=== PATIENT | male | born 1955 | race Caucasian/White ===

== ENCOUNTER 2022-12-04 07:27 | Outpatient (CLI) | payer MEDICARE, SELFPAY | END 2022-12-04 07:28 | disposition home or self-care (01) | PROVIDERS: Visit Provider Family Medicine | DX: Z00.00 Encounter for general adult medical examination without abnormal findings (principal); E78.5 Hyperlipidemia, unspecified; Z13.6 Encounter for screening for cardiovascular disorders; Z11.59 Encounter for screening for other viral diseases | CPT/HCPCS: 80053; 80061; 86803 ==

== ENCOUNTER 2022-12-06 16:45 | Outpatient (RCR) | payer MEDICARE, SELFPAY ==
--- NOTE | 2022-11-13 18:08 | PT.OPE ---
[facility] [place] [facility] Eval PT [facility] Outpatient Eval Start: 11/13/22 16:29 Freq: Status: Active Protocol: Document 11/13/22 17:39 HILDA (Rec: 11/13/22 18:07 MAYA Desktop) E-signed By Soy Foster, PT, ATC Physical Therapy Outpatient Evaluation Insurance Information Insurance Name Medicare B,[employer] Medical Diagnosis M70.62 Trochanteric bursitis of left hip Treating Diagnosis L hip pain and stiffness L knee pain Referring Aaliyah Ruiz PA-C Subjective Subjective Mendez's chief complaint is L lateral hip > L knee pain that occurs when standing durations longer than five minutes. Insidious onset about 3 weeks ago after experiencing extreme cramping in his left foot, calf and thigh. Although the cramping has diminished, the intermittent left hip and knee pain continues. He was prescribed a steroid following the extreme cramping episode but discontinued as this seemed to worsen his symptoms. He is scheduled to see his primary care provider on December and is waiting for a neuro consult appt from [place]. History of neuropathy which makes it feel like he is standing on foam sponges when without shoes. Vein stripping in both lower legs 6-7 years ago thus reason for discoloration in lower legs. Date of Last Physician Visit 11/07/22 Occupation client hr manager, [employer] Preferred Name Mendez Precautions Weight Bearing Status Full Weight Bearing Therapy Limitations/Systems Review Not Limited Objective Range of Motion Hip ER/IR R:50/20 L: 40/10 (prior to treatment) pain at both end ranges. L: 45/18 (following treatment) Knee ROM L: 0-120 degrees, no pain Strength knee and hip 5/5 Palpation Very tender in the L gluteus medius and ignacio muscles, also piriformis muscles. Mild tenderness over GT bursa. Balance & Gait Walks with significant limp, decreased left stride length and WB'ing time. Posture Increased R LE WB'ing vs L Assessment Assessment/Impression Mendez is a pleasant 67 year old male experiencing symptoms throughout the entire L lower extremity. His cramping frequency and intensity appear less than 3 weeks ago yet his L lateral hip pain and anterior L knee pain complicate all ADL's, walking and transitional mobility. I did find spasm presence in the L gluteal complex which did loosen and lessen symptoms following todays manual treatment session. Improved ability for L passive hip ROM, crossing legs and tying shoes following session as well. L hip muscle spasms and bursitis are likely the reason for his L hip pain vs OA. X- rays of the L hip were not performed. His L anterior knee pain appears related to his patella OA and improper tracking. Kinesiotape application was applied with good symptom relief with squatting and improved walking following. Skilled PT is recommended to address his L hip muscle spasms and bursitis, also his L knee patella OA. Pain control, ROM, strength and home ex program development should be part of the care plan. I support his continued effort to see a neurologist as well as his primary care provider. Primary Functional Limitations Standing > [address] squatting finding a comfortable position in bed tying shoes or donning socks. Plan of Care Rehabilitation Potential Good Physical Therapy Goals 1.Decrease L hip pain permitting improved ease and independence with donning socks and tying shoes. 2.Able to cross legs in absence of L hip pain. 3.Ex program addressing quad, hip and core strength work. 4.Stand duration > 15 min.s without limitation for L hip or knee pain. Coordination/Communication With Referral Source Treatment Plan/Direct Interventions Electrical Stimulation,Manual Therapy,Therapeutic Exercises Frequency/Duration 1-2x per week 4-12 weeks Patient Will Be Discharged From Therapy Independent w/HEP, Independently Progressing Evaluation Billing Untimed Code Treatment Minutes 30 PT Eval No Charge No Complexity Low Certification Information Initial Certification Date 11/13/22 Ending Certification Date 02/12/23 Physician Signature & Date Requested Please Sign/Date Here Physician Comment/Change : Physician NPI Number #
== END 2023-04-05 23:59 | disposition home or self-care (01) ==
PROVIDERS: Visit Provider Physician Assistant Surgical
DX: M70.62 Trochanteric bursitis, left hip (principal); M25.552 Pain in left hip; M25.562 Pain in left knee; M25.652 Stiffness of left hip, not elsewhere classified; Z51.89 Encounter for other specified aftercare
CPT/HCPCS: 97110; 97140; 97161